=== PATIENT | male | born 1995 | race Caucasian/White ===

== ENCOUNTER 2021-08-12 15:10 | Emergency (ER) | payer BC ==
[2021-08-12] MEDS ORDERED: HYDROCODONE/APAP 10/325 TAB ONE (16:08)
--- NOTE | 2021-08-12 16:33 | RAD REPORT ---
EXAM DESCRIPTION: RAD - Ankle Left 3 View - 08/12/2021 4:26 pm CLINICAL HISTORY: Pain;Swelling COMPARISON: No comparisons FINDINGS: Moderate soft tissue swelling is seen adjacent to the lateral malleolus and anterior aspec t of the ankle. No acute fracture or dislocation.
--- NOTE | 2021-08-12 16:36 | ER ---
Nurse's Notes [facility] Name: Eben Anderson Age: 26 yrs Sex: Male : 1995 Arrival Date: 08/12/2021 Time: 15:12 Bed 12 Private MD: Diagnosis: Sprain of ankle Presentation: 08/12 15:38 Chief complaint: Patient states: "I stepped on a decoration rock walking down the porch aa5 and I think I broke my ankle". Pt c/o pain to left ankle. Coronavirus screen: At this time, the client does not indicate any symptoms associated with coronavirus-19. Ebola Screen: No symptoms or risks identified at this time. Initial Sepsis Screen: Does the patient meet any 2 criteria? No. Patient's initial sepsis screen is negative. Does the patient have a suspected source of infection? No. Patient's initial sepsis screen is negative. Risk Assessment: Do you want to hurt yourself or someone else? Patient reports no desire to harm self or others. Onset of symptoms was August 12, 2021. 15:38 Acuity: NOLVIA 4 aa5 15:38 Method Of Arrival: Wheelchair aa5 Historical: - Allergies: 15:39 No Known Allergies; aa5 - Home Meds: 15:39 None [Active]; aa5 - PMHx: 15:39 None; aa5 - PSHx: 15:39 None; Exploratory testicular surgery; right rotator cuff repair; aa5 - Immunization history:: Client reports receiving the 2nd dose of the Covid vaccine. - Social history:: Smoking status: Patient denies any tobacco usage or history of. Assessment: 17:33 Reassessment: Patient is alert, oriented x 3, equal unlabored respirations, skin aa5 warm/dry/pink. Vital Signs: 15:38 BP 136 / 83; Pulse 102; Resp 16 S; Temp 98.0(TE); Pulse Ox 96% on R/A; Weight 77.11 kg aa5 (R); Height 5 ft. 4 in. (162.56 cm) (R); 15:38 Body Mass Index 29.18 (77.11 kg, 162.56 cm) aa5 ED Course: 15:12 Patient arrived in ED. as 15:19 Tessie Ro FNP-C is PHCP. kb 15:19 Barrera, Tomás, MD is Attending Physician. kb 15:19 Arnoldo Noland MD is Attending Physician. kb 15:38 Arm band placed on. aa5 15:39 Triage completed. aa5 15:44 Patient placed in waiting room, Patient notified of wait time. aa5 16:26 Ankle Left 3 View XRAY In Process Unspecified. EDMS 17:31 Crutch training done. Orthoglass splint: Posterior short lleg splint applied on left mt leg. 17:33 No provider procedures requiring assistance completed. Patient did not have IV access aa5 during this emergency room visit. Administered Medications: 15:43 Drug: [place] (HYDROcodone-acetaminophen) 10 mg-325 mg 1 tabs Route: PO; aa5 Outcome: 16:35 Discharge ordered by MD. kb 17:33 Discharged to home ambulatory, with crutches, with significant other. aa5 17:33 Condition: stable 17:33 Discharge instructions given to patient, Instructed on discharge instructions, follow up and referral plans. medication usage, Demonstrated understanding of instructions, follow-up care, medications, Prescriptions given X 1. 17:35 Patient left the ED. aa5 Signatures: Dispatcher [employer] EDMS Tessie Ro, MICHAEL SENIOR CORE JAVA DEVELOPER-Doreen Coles Audri, RN RN aa5 Christen Gonzalez dc
--- NOTE | 2021-08-12 16:36 | EDPHYS ---
Physician Documentation [facility] Name: Eben Anderson Age: 26 yrs Sex: Male : 1995 Arrival Date: 08/12/2021 Time: 15:12 Bed 12 Private MD: RENALDO Physician Arnoldo Noland HPI: 08/12 16:17 This 26 yrs old Male presents to ER via Wheelchair with complaints of Ankle kb Injury. 16:17 The patient presents with pain, that is acute, swelling, tenderness. The complaints kb affect the left ankle. Onset: The symptoms/episode began/occurred just prior to arrival. Context: The problem was sustained at home, resulted from a mis-step by the patient, The patient is unable to bear weight. The patient is not able to ambulate. Associated signs and symptoms: Pertinent positives: swelling, Pertinent negatives: calf tenderness, fever, nausea, numbness, rash, tingling, vomiting, warmth, weakness. Modifying factors: The symptoms are alleviated by nothing, the symptoms are aggravated by weight bearing, movement. Severity of symptoms: At their worst the symptoms were moderate, in the emergency department the symptoms are unchanged. The patient has not experienced similar symptoms in the past. The patient has not recently seen a physician. Pt reports he stepped off the porch and twisted his ankle. States he heard 3 pops. Reports he was able to bear weight at first, but now unable. Historical: - Allergies: 15:39 No Known Allergies; aa5 - Home Meds: 15:39 None [Active]; aa5 - PMHx: 15:39 None; aa5 - PSHx: 15:39 None; Exploratory testicular surgery; right rotator cuff repair; aa5 - Immunization history:: Client reports receiving the 2nd dose of the Covid vaccine. - Social history:: Smoking status: Patient denies any tobacco usage or history of. ROS: 16:16 Constitutional: Negative for fever, chills, and weight loss. kb 16:16 MS/extremity: Positive for injury or acute deformity, decreased range of motion, pain, swelling, tenderness, of the left medial ankle. 16:16 All other systems are negative. Exam: 16:16 Constitutional: This is a well developed, well nourished patient who is awake, alert, kb and in no acute distress. Head/Face: Normocephalic, atraumatic. ENT: Moist Mucous membranes Respiratory: Respirations even and unlabored. No increased work of breathing, no retractions or nasal flaring. Skin: Warm, dry with normal turgor. Normal color. Neuro: Awake and alert, GCS 15, oriented to person, place, time, and situation. Moves all extremities. Normal gait. Psych: Awake, alert, with orientation to person, place and time. Behavior, mood, and affect are within normal limits. 16:16 Musculoskeletal/extremity: Extremities: grossly normal except: noted in the left medial ankle: decreased ROM, pain, swelling, tenderness, ROM: limited active range of motion due to pain, in the left medial ankle, Circulation is intact in all extremities. Sensation intact. Weight bearing: is unable to bear weight. Vital Signs: 15:38 BP 136 / 83; Pulse 102; Resp 16 S; Temp 98.0(TE); Pulse Ox 96% on R/A; Weight 77.11 kg aa5 (R); Height 5 ft. 4 in. (162.56 cm) (R); 15:38 Body Mass Index 29.18 (77.11 kg, 162.56 cm) aa5 Procedures: 18:25 Splinting: Splint applied to left leg using Orthoglass splint, applied by tech. kb Examined by me, post splint application: neurovascular intact, 2+ distal pulses palpable, brisk capillary refill noted, Patient tolerated well. MDM: 15:40 Patient medically screened. kb 16:17 Data reviewed: vital signs, nurses notes. Data interpreted: Pulse oximetry: on room air kb is 96 %. Interpretation: normal. Counseling: I had a detailed discussion with the patient and/or guardian regarding: the historical points, exam findings, and any diagnostic results supporting the discharge/admit diagnosis, radiology results, the need for outpatient follow up, a orthopedic surgeon, to return to the emergency department if symptoms worsen or persist or if there are any questions or concerns that arise at home. 08/12 15:41 Order name: Ankle Left 3 View XRAY; Complete Time: 16:35 kb 08/12 15:41 Order name: Short Leg Splint; Complete Time: 17:31 kb 08/12 15:41 Order name: Crutches; Complete Time: 17:31 kb 08/12 15:43 Order name: Ice pack; Complete Time: 15:43 aa5 Administered Medications: 15:43 Drug: [place] (HYDROcodone-acetaminophen) 10 mg-325 mg 1 tabs Route: PO; aa5 Disposition Summary: 08/12/21 16:35 Discharge Ordered Location: Home kb Condition: Stable kb Diagnosis - Sprain of ankle kb Followup: kb - With: Emergency Department - When: As needed - Reason: Worsening of condition Followup: kb - With: Private Physician - When: 2 - 3 days - Reason: Recheck today's complaints, Continuance of care, Re-evaluation by your physician Discharge Instructions: - Discharge Summary Sheet kb - Ankle Sprain, [id number] kb Forms: - Medication Reconciliation Form kb - Thank You Letter kb - Antibiotic Education kb - Prescription Opioid Use kb Prescriptions: - Diclofenac Sodium 75 mg Oral tablet,delayed release (DR/EC) - take 1 tablet by ORAL route 2 times per day As needed; 30 tablet; Refills: 0, kb Product Selection Permitted Addendum: 08/15/2021 10:23 Co-signature as Attending Physician, Arnoldo Noland MD I agree with the assessment and c hernandez plan of care. Signatures: Dispatcher [employer] Tessie Gutiérrez, DIRECTOR MEDICARE SALES-C DIRECTOR MEDICARE SALES-Arnoldo Velazquez MD MD cha Calderon, Audri, RN RN aa5
[2021-08-12 17:59] VITALS: BP 136/83; TEMP 98; O2SAT 96
== END 2021-08-12 17:35 | disposition home or self-care (01) ==
LOC: ER 15:10
PROC: 2W3RX1Z Immobilization of Left Lower Leg using Splint (ICD-10-PCS; principal; 2021-08-12)
DX: S93.402A Sprain of unspecified ligament of left ankle, initial encounter (principal); X50.1XXA Overexertion from prolonged static or awkward postures, initial encounter; Y93.89 Activity, other specified; Y92.89 Other specified places as the place of occurrence of the external cause; Y99.9 Unspecified external cause status
CPT/HCPCS: 99284